=== PATIENT | female | born 1995 | race Caucasian/White ===

== ENCOUNTER → 2025-01-25 | Outpatient (REF) | payer OTHER | LOC: US 10:05 | PROVIDERS: ATTEND Urology | DX: N13.30 Unspecified hydronephrosis (principal); N39.0 Urinary tract infection, site not specified | CPT/HCPCS: 74018; 76770; 76857; 81025 ==

== ENCOUNTER 2025-04-27 02:50 | Emergency (ER) | payer OTHER ==
[~2025-04-27] VITALS: Ht 165.1 cm; Wt 94.8 kg
[~2025-04-27 02:50] MED LIST: DEPO PROVERA INJ; EFFEXOR XR 3737.5 MG PO; EMGALITY S120 MG/1 M INJ; HYDROXYZINE HCL10 MG PO; INDERAL LA80 MG PO; LYRICA150 MG PO; MELOXICAM7.5 MG PO; METHYLPHENIDATE10 MG PO; ONDANSETRON ODT4 MG SL; OXYBUTYNIN CHLOR5 M1 PO; TIZANIDINE HCL4 M1 PO; UBRELVY100 MG PO; VIT D2 PO
[2025-04-27 02:53] VITALS: PULSE 86; RESP 16; TEMP 98
[2025-04-27 03:11] VITALS: PULSE 81; RESP 16; O2SAT 100
== END 2025-04-27 03:15 | disposition home or self-care (01) ==
LOC: ER 02:55
DX: S61.217A Laceration without foreign body of left little finger without damage to nail, initial encounter (principal); W26.0XXA Contact with knife, initial encounter; Y92.89 Other specified places as the place of occurrence of the external cause
CPT/HCPCS: 99283